=== PATIENT | male | born 2000 | race Caucasian/White ===

== ENCOUNTER 2020-10-12 16:46 | Emergency (ER) | payer BC ==
[~2020-10-12] VITALS: Ht 175.3 cm; Wt 58.1 kg
--- NOTE | 2020-10-12 17:27 | EKG ---
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
[2020-10-12] MEDS ORDERED: AMOX1TAB58 PO (17:40)
[2020-10-12] MEDS ORDERED: CETI1TAB7 PO (17:40)
--- NOTE | 2020-10-12 17:43 | PHYS DOC ---
Past History Past Medical History: Sinusitis Past Surgical History: Other Additional Past Surgical Histo: radial and ulnar fx repair Alcohol Use: None Adult General Chief Complaint Chief Complaint: SYNCOPE HPI HPI Patient is a 20-year-old male with past medical history of anaphylaxis and celiac disease who presents to the emergency room after having an episode at work. Patient states that he started taking Medrol today. He states that after taking his his lunch dose and eating lunch he had a reaction very similar to what happens when he eats gluten. Patient states that he ate his lunch and when he went back to work he started to feel lightheaded and then had a syncopal episode. He states that when that happened he also had abdominal pain. When he came to he had an episode of vomiting and shortly thereafter had another episode where he felt like he went out of consciousness. He states this is the same reaction he has when he eats gluten. He has had multiple syncopal episodes in the past. He denies any kind of chest pain, shortness of breath, headache, weakness, numbness, difficulty with gait. Patient has had this sinus pressure behind his eyes for the last several weeks. He states he has a long history of sinus infections. He states this feels exactly like prior sinus infections. He denies any, severe headache or confusion. He has not had any kind of fever. He was recently started on penicillin and Medrol for his sinusitis. Review of Systems Review of Systems Complete ROS is negative unless otherwise documented in HPI Allergies Allergies Allergies Coded Allergies Type Severity Reaction Last Updated Verified gluten Allergy Unknown 10/12/20 Yes wheat Allergy Unknown 10/12/20 Yes Uncoded Allergies Type Severity Reaction Last Updated Verified TAPIOCA Allergy Unknown 10/12/20 Physical Exam Physical Exam General: Awake, alert, NAD. Well Nourished, well hydrated. Cooperative HEENT: Atraumatic, EOMI, PERRL, airway patent, moist oral mucosa Neck: Supple, trachea midline Respiratory: CTA bilaterally, normal effort, no wheezing/crackles CV: RRR, no murmur, cap refill <2 GI: Soft, nondistended, nontender, no masses MSK: No obvious deformities Skin: Warm, dry, intact Neuro: A&O x3, speech NL, 5/5 strength in BUE/BLE distally and proximally, CN 2- 12 intact, cerebellar testing normal Psych: Normal affect, normal mood, not suicidal or homicidal Current Patient Data Vital Signs Vital Signs Date Time Temp Pulse Resp B/P (MAP) Pulse Ox O2 Delivery O2 Flow Rate FiO2 10/12/20 17:06 97.9 73 20 122/61 (81) 98 Room Air EKG EKG [] Radiology/Procedures Radiology/Procedures [] Heart Score C/O Chest Pain: N/A Risk Factors: Risk Factors: DM, Current or recent (<one month) smoker, HTN, HLP, family history of CAD, obesity. Risk Scores: Risk Factors: DM, Current or recent (<one month) smoker, HTN, HLP, family history of CAD, obesity. Course & Med Decision Making Course & Med Decision Making Pertinent Labs and Imaging studies reviewed. (See chart for details) Patient is a 20-year-old male who presents to the emergency room after having a reaction earlier today. Patient has had similar reactions to this to gluten. EKG was done and does not show any QT prolongation or signs of arrhythmia. Patient did not have any kind of chest pain, shortness of breath, headache and does not have any kind of neurologic deficits at this time. Is likely his syncope was due to the reaction that he is having. Patient is feeling completely back to normal. Patient does not want to take any further steroids. We will place him on Zyrtec-D and give him a prescription for Augmentin. Patient will start Augmentin in 5 days if his symptoms have not improved with the penicillin. Patient's test results and vitals while in the ED were fully reviewed and discussed with the patient. Patient is stable and at this time does not need admission to the hospital. We have discussed strict return precautions and the importance of following up with their Primary Care Physician. Patient stated understanding and was given an opportunity to ask any questions. Patient is in agreement with plan. Dragon Disclaimer Dragon Disclaimer This electronic medical record was generated, in whole or in part, using a voice recognition dictation system. Departure Departure: Impression: Primary Impression: Sinus infection Additional Impression: Medication adverse effect Disposition: 01 DC HOME SELF CARE/HOMELESS Condition: IMPROVED Referrals: PCP,UNKNOWN (PCP) Patient Instructions: Allergies, Generic, Sinusitis Scripts Amoxicillin/Potassium Clav (AUGMENTIN 500-125 TABLET) 1 Each Tablet 1 TAB PO BID for sinusitiss for 10 Days, #20 TAB 0 Refills Prov: KATE SMYTH MD 10/12/20 Cetirizine Hcl/Pseudoephedrine (ZYRTEC-D TABLET) 1 Each Tab.er.12h 1 TAB PO BID for sinusitis, #30 TAB Prov: KATE SMYTH MD 10/12/20 Problem Qualifiers KATE SMYTH MD Oct 12, 2020 17:43
[2020-10-12 17:56] VITALS: BP 105/85
== END 2020-10-12 17:56 | disposition home or self-care (01) ==
LOC: ER 16:46
DX: J32.9 Chronic sinusitis, unspecified (principal); R55 Syncope and collapse; T38.0X5A Adverse effect of glucocorticoids and synthetic analogues, initial encounter; R11.10 Vomiting, unspecified; Z88.8 Allergy status to other drugs, medicaments and biological substances; Z91.018 Allergy to other foods; Y92.89 Other specified places as the place of occurrence of the external cause
CPT/HCPCS: 93005; 99283